=== PATIENT | female | born 1965 | race Caucasian/White ===

== ENCOUNTER 2019-05-19 04:36 | Inpatient (IN) ==
[2019-05-19] MEDS ORDERED: LACTULOSE 20 GM/30 ML UDCUP PO PRN (07:14)
[2019-05-19] MEDS ORDERED: ONDANSETRON 4 MG/2 ML VIAL IV PRN (07:14)
[2019-05-19 07:42] LABS: Basophils % 0.4 % (0.0-0.8); Eosinophils # 0.2 10*3/uL (0.0-0.87); Eosinophils % 2.3 % (0.00-10.9); Hematocrit 31.8 VOL% (35.7-47.0); Hemoglobin 10.1 GM/DL (12.0-16.0); Immature Granulocytes % 0.3 %; Immature Granulocytes Absolute 0.02 #; Lymphocytes % 25.7 % (21.3-54.2); Mean Corpuscular HGB Conc 31.8 GM/DL (32-36); Mean Corpuscular Volume 78.7 FL (87-102); Mean Platelet Volume 9.6 FL (9.6-12.0); Monocytes % 7.2 % (1.7-12.7); Neutrophils % 64.1 % (38.7-73.9); Platelet Count 257 T/CUMM (130-400); Red Blood Count 4.04 MC/CUMM (3.8-5.5); Red Cell Distribution Width 15.9 % (9.3-17.3); White Blood Count 7.8 T/CUMM (4-12)
[2019-05-19 07:53] LABS: PT Patient Result 10.7 SECS (9.6-12.2); Partial Thromboplastin Time 33.8 SECS (20.8-36.0)
[2019-05-19 08:16] LABS: Troponin I 4.03 NG/ML (0.00-0.045)
[2019-05-19 08:29] LABS: Bilirubin,Total 0.4 MG/DL (0.2-1.0); Calcium 8.8 MG/DL (8.5-10.1); Osmolality,Calculated 282.1 MOS/KG (273-304); Risk Ratio 2.74; Thyroid Stimulating Hormone 4.2 uIU/ml (0.358-3.74); Total Protein 7.1 G/DL (6.4-8.3); VLDL CHOLESTEROL 14.2 MG/DL
[2019-05-19] MEDS: ENOXAPARIN 40 MG/0.4 ML SYRINGE SUBCUT SCH (08:33)
[2019-05-19] MEDS ORDERED: MAGNESIUM SULF RIDER 2 GM in PREMIX 1 EACH IV PRN (08:58)
[2019-05-19] MEDS ORDERED: POTASSIUM CHLORIDE RIDER 10 MEQ in PREMIX 1 EACH IV PRN (08:58)
[2019-05-19] MEDS ORDERED: diphenhydrAMINE CAP 25 MG CAPSULE PO ONE (08:58)
[2019-05-19] MEDS ORDERED: ASPIRIN 325 MG TABLET PO ONE (08:58)
[2019-05-19] MEDS ORDERED: DIAZEPAM 5 MG TABLET PO ONE (08:58)
[2019-05-19 09:59] LABS: Apearance,Urine Slightly Hazy (Clear); Bacteria,Urine Occasional /HPF (Few); Bilirubin,Urine Negative (Negative); Blood, Urine Negative (Negative); Glucose,Urine (UA) Negative (Negative); Ketones,Urine Negative (Negative); Mucus,Urine Occasional /LPF (Occasional); Nitrite,Urine Negative (Negative); Protein,Urine Negative; RBC,Urine 4 /HPF (0-4); Squamous Epithelial Cell,Urine Occasional /HPF (0-10); Urine Color Yellow (Yellow); Urine Urobilinogen < 2.0 EU/DL (0.2-1.0); WBC,Urine 85 /HPF (0-6)
[2019-05-19 10:07] LABS: Barbiturates Screen,Urine Negative (Negative); Benzodiazepines Screen,Urine Negative (Negative); Cannabinoid Screen,Urine Positive (Negative); Opiate Screen,Urine Positive (Negative); Phencyclidine Screen,Urine Negative (Negative)
[2019-05-19] MEDS: PANTOPRAZOLE 40 MG TABLET PO SCH (10:13)
[2019-05-19] MEDS ORDERED: LIDOCAINE 1% 20 ML VIAL ONE (14:48)
[2019-05-19] MEDS ORDERED: HEPARIN/NACL 0.9% 2 UNITS/ML 500 ML IV ONE (14:48)
[2019-05-19] MEDS ORDERED: MIDAZOLAM 2 MG/2 ML VIAL ONE (15:06)
[2019-05-19] MEDS ORDERED: HYDROmorphone 2 MG/1 ML VIAL ONE (15:06)
[2019-05-19] MEDS ORDERED: ADENOSINE 90 MG/30 ML VIAL IV ONE (15:52)
[2019-05-19] MEDS ORDERED: ENOXAPARIN 30 MG/0.3 ML SYRINGE ONE (15:54)
[2019-05-19] MEDS: ACETAMINOPHEN 325 MG TABLET PO PRN (18:00)
[2019-05-19] MEDS ORDERED: MORPHINE 4 MG/1 ML VIAL IV PRN (20:36)
[2019-05-19] MEDS: HydrOXYzine PAMOATE 25 MG CAPSULE PO SCH (21:06)
[2019-05-19] MEDS: NITROGLYCERIN SL 0.4 MG TABLET SL PRN ×3 (23:00→23:12)
[2019-05-19] MEDS ORDERED: LORazepam 2 MG/1 ML VIAL IV ONE (23:27)
[2019-05-19] MEDS ORDERED: NITROGLYCERIN 2% OINT 1 INCH/GM PACK TOP ONE (23:34)
[2019-05-20] MEDS ORDERED: ATORVASTATIN 20 MG TABLET PO SCH (00:58)
[2019-05-20] MEDS: MORPHINE 4 MG/1 ML VIAL IV PRN ×4 (02:21→15:30)
[2019-05-20] MEDS: ASPIRIN EC 81 MG TABLET PO SCH ×2 (03:50→10:49)
[2019-05-20] MEDS: METOPROLOL TARTRATE 25 MG TABLET PO SCH ×3 (03:50→20:49)
[2019-05-20 04:30] LABS: Basophils % 0.2 % (0.0-0.8); Eosinophils # 0.2 10*3/uL (0.0-0.87); Eosinophils % 1.7 % (0.00-10.9); Hematocrit 32.5 VOL% (35.7-47.0); Immature Granulocytes % 0.2 %; Immature Granulocytes Absolute 0.02 #; Lymphocytes # 1.8 10*3/uL (1.4-4.0); Lymphocytes % 18.7 % (21.3-54.2); Mean Corpuscular HGB Conc 30.8 GM/DL (32-36); Mean Corpuscular Volume 79.5 FL (87-102); Mean Platelet Volume 10.1 FL (9.6-12.0); Monocytes % 7.3 % (1.7-12.7); Neutrophils % 71.9 % (38.7-73.9); Platelet Count 280 T/CUMM (130-400); Red Blood Count 4.09 MC/CUMM (3.8-5.5); White Blood Count 9.4 T/CUMM (4-12)
[2019-05-20 04:42] LABS: Calcium 8.3 MG/DL (8.5-10.1); Osmolality,Calculated 287.8 MOS/KG (273-304)
[2019-05-20] MEDS ORDERED: hydrALAZINE 20 MG/1 ML VIAL IV STA (04:51)
[2019-05-20] MEDS ORDERED: NITROGLYCERIN 2% OINT 1 INCH/GM PACK TOP SCH (06:00)
[2019-05-20] MEDS ORDERED: hydrALAZINE 20 MG/1 ML VIAL IV PRN (08:28)
[2019-05-20] MEDS: FLUoxetine 20 MG CAPSULE PO SCH (09:23)
[2019-05-20] MEDS: HydrOXYzine PAMOATE 25 MG CAPSULE PO SCH ×3 (09:24→20:49)
[2019-05-20] MEDS: LEVOFLOXACIN INJ 750 MG in PREMIX 1 EACH IV SCH (09:24)
[2019-05-20] MEDS: PANTOPRAZOLE 40 MG TABLET PO SCH (09:24)
[2019-05-20] MEDS: ENOXAPARIN 40 MG/0.4 ML SYRINGE SUBCUT SCH (09:59)
[2019-05-20] MEDS: NITROGLYCERIN DRIP 50 MG/250 ML BOTTLE IV PRN (10:49)
[2019-05-20] MEDS: HEPARIN DRIP 25,000 UNITS/500 ML PREMIX IV SCH (11:21)
[2019-05-20] MEDS ORDERED: HEPARIN 5,000 UNIT/1 ML VIAL IV ONE (13:30)
[2019-05-20] MEDS: LORazepam 2 MG/1 ML VIAL IV PRN ×2 (14:04→20:49)
[2019-05-20] MEDS ORDERED: cloNIDine 0.1 MG/24 HR PATCH TRANSDERM SCH (16:30)
[2019-05-20] MEDS: fentaNYL 25 MCG/HR PATCH TRANSDERM SCH (16:53)
[2019-05-20] MEDS: ATORVASTATIN 40 MG TABLET PO SCH (20:49)
[2019-05-21] MEDS: LORazepam 2 MG/1 ML VIAL IV PRN ×3 (00:22→20:23)
[2019-05-21] MEDS: MORPHINE 4 MG/1 ML VIAL IV PRN ×6 (01:54→18:37)
[2019-05-21 05:31] LABS: Basophils % 0.3 % (0.0-0.8); Eosinophils # 0.3 10*3/uL (0.0-0.87); Eosinophils % 3.9 % (0.00-10.9); Hemoglobin 9.8 GM/DL (12.0-16.0); Immature Granulocytes % 0.1 %; Immature Granulocytes Absolute 0.01 #; Lymphocytes % 27.8 % (21.3-54.2); Mean Corpuscular HGB Conc 31.6 GM/DL (32-36); Mean Corpuscular Volume 78.9 FL (87-102); Mean Platelet Volume 9.6 FL (9.6-12.0); Monocytes % 9.2 % (1.7-12.7); Neutrophils % 58.7 % (38.7-73.9); Platelet Count 241 T/CUMM (130-400); Red Blood Count 3.93 MC/CUMM (3.8-5.5); Red Cell Distribution Width 15.9 % (9.3-17.3); White Blood Count 7.3 T/CUMM (4-12)
[2019-05-21 06:16] LABS: Calcium 8.6 MG/DL (8.5-10.1); Osmolality,Calculated 279.4 MOS/KG (273-304)
[2019-05-21] MEDS: ASPIRIN EC 81 MG TABLET PO SCH (08:45)
[2019-05-21] MEDS: LEVOFLOXACIN INJ 750 MG in PREMIX 1 EACH IV SCH (08:45)
[2019-05-21] MEDS: PANTOPRAZOLE 40 MG TABLET PO SCH (08:46)
[2019-05-21] MEDS: METOPROLOL TARTRATE 25 MG TABLET PO SCH ×2 (08:46→20:23)
[2019-05-21] MEDS: FLUoxetine 20 MG CAPSULE PO SCH (08:47)
[2019-05-21] MEDS: HydrOXYzine PAMOATE 25 MG CAPSULE PO SCH ×3 (08:47→20:22)
[2019-05-21] MEDS ORDERED: HEPARIN 5,000 UNIT/1 ML VIAL IV ONE (11:36)
[2019-05-21] MEDS: HEPARIN DRIP 25,000 UNITS/500 ML PREMIX IV SCH (12:01)
[2019-05-21] MEDS: NITROGLYCERIN DRIP 50 MG/250 ML BOTTLE IV PRN (14:55)
[2019-05-21] MEDS: ATORVASTATIN 40 MG TABLET PO SCH (20:23)
[2019-05-22] MEDS: LORazepam 2 MG/1 ML VIAL IV PRN (00:34)
[2019-05-22 01:20] LABS: Basophils % 0.3 % (0.0-0.8); Eosinophils # 0.4 10*3/uL (0.0-0.87); Eosinophils % 6.4 % (0.00-10.9); Hematocrit 31.7 VOL% (35.7-47.0); Hemoglobin 9.8 GM/DL (12.0-16.0); Immature Granulocytes % 0.3 %; Immature Granulocytes Absolute 0.02 #; Lymphocytes # 1.9 10*3/uL (1.4-4.0); Lymphocytes % 31.6 % (21.3-54.2); Mean Corpuscular HGB Conc 30.9 GM/DL (32-36); Mean Corpuscular Volume 79.6 FL (87-102); Mean Platelet Volume 10.2 FL (9.6-12.0); Monocytes % 12.7 % (1.7-12.7); Neutrophils % 48.7 % (38.7-73.9); Platelet Count 232 T/CUMM (130-400); Red Blood Count 3.98 MC/CUMM (3.8-5.5); White Blood Count 6.1 T/CUMM (4-12)
[2019-05-22 01:48] LABS: Calcium 8.8 MG/DL (8.5-10.1); Osmolality,Calculated 278.5 MOS/KG (273-304)
[2019-05-22] MEDS: HEPARIN DRIP 25,000 UNITS/500 ML PREMIX IV SCH ×2 (09:01→11:22)
[2019-05-22] MEDS: HydrOXYzine PAMOATE 25 MG CAPSULE PO SCH ×3 (09:52→20:00)
[2019-05-22] MEDS: cefTRIAXone 1,000 MG in SYRINGE 1 EACH IV SCH (09:52)
[2019-05-22] MEDS: ASPIRIN EC 81 MG TABLET PO SCH (09:53)
[2019-05-22] MEDS: FLUoxetine 20 MG CAPSULE PO SCH (09:53)
[2019-05-22] MEDS: METOPROLOL TARTRATE 25 MG TABLET PO SCH ×2 (09:53→20:00)
[2019-05-22] MEDS: PANTOPRAZOLE 40 MG TABLET PO SCH (09:53)
[2019-05-22] MEDS: NITROGLYCERIN 2% OINT 1 INCH/GM PACK TOP SCH ×3 (09:53→17:25)
[2019-05-22] MEDS: ACETAMINOPHEN 325 MG TABLET PO PRN (13:04)
[2019-05-22] MEDS: MORPHINE 4 MG/1 ML VIAL IV PRN ×3 (15:35→22:39)
[2019-05-22] MEDS: ATORVASTATIN 40 MG TABLET PO SCH (20:00)
[2019-05-23] MEDS: MORPHINE 4 MG/1 ML VIAL IV PRN ×4 (04:03→20:20)
[2019-05-23] MEDS: NITROGLYCERIN 2% OINT 1 INCH/GM PACK TOP SCH ×4 (04:04→18:12)
[2019-05-23] MEDS: HEPARIN DRIP 25,000 UNITS/500 ML PREMIX IV SCH ×3 (04:37→22:14)
[2019-05-23 05:32] LABS: Basophils % 0.4 % (0.0-0.8); Eosinophils # 0.4 10*3/uL (0.0-0.87); Eosinophils % 5.3 % (0.00-10.9); Hematocrit 37.6 VOL% (35.7-47.0); Hemoglobin 11.6 GM/DL (12.0-16.0); Immature Granulocytes % 0.5 %; Immature Granulocytes Absolute 0.04 #; Lymphocytes # 1.7 10*3/uL (1.4-4.0); Lymphocytes % 22.8 % (21.3-54.2); Mean Corpuscular HGB Conc 30.9 GM/DL (32-36); Mean Corpuscular Volume 80.7 FL (87-102); Mean Platelet Volume 9.8 FL (9.6-12.0); Monocytes % 9.6 % (1.7-12.7); Neutrophils % 61.4 % (38.7-73.9); Platelet Count 282 T/CUMM (130-400); Red Blood Count 4.66 MC/CUMM (3.8-5.5); Red Cell Distribution Width 16.4 % (9.3-17.3); White Blood Count 7.3 T/CUMM (4-12)
[2019-05-23 05:48] LABS: Calcium 9.2 MG/DL (8.5-10.1); Osmolality,Calculated 276.7 MOS/KG (273-304)
[2019-05-23] MEDS: HydrOXYzine PAMOATE 25 MG CAPSULE PO SCH ×3 (08:29→20:44)
[2019-05-23] MEDS: ASPIRIN EC 81 MG TABLET PO SCH (08:30)
[2019-05-23] MEDS: fentaNYL 25 MCG/HR PATCH TRANSDERM SCH (08:30)
[2019-05-23] MEDS: METOPROLOL TARTRATE 25 MG TABLET PO SCH ×2 (08:30→20:25)
[2019-05-23] MEDS: FLUoxetine 20 MG CAPSULE PO SCH (08:30)
[2019-05-23] MEDS: PANTOPRAZOLE 40 MG TABLET PO SCH (08:30)
[2019-05-23] MEDS: cefTRIAXone 1,000 MG in SYRINGE 1 EACH IV SCH (08:31)
[2019-05-23] MEDS ORDERED: ASPIRIN CHEW 81 MG TABLET PO ONE (12:58)
[2019-05-23] MEDS: amLODIPine 5 MG TABLET PO SCH (14:06)
[2019-05-23] MEDS: ACETAMINOPHEN 325 MG TABLET PO SCH ×2 (14:07→20:23)
[2019-05-23] MEDS: GABAPENTIN 100 MG CAPSULE PO SCH ×3 (14:07→20:23)
[2019-05-23] MEDS: LORazepam 2 MG/1 ML VIAL IV PRN ×2 (14:07→20:45)
[2019-05-23] MEDS: ATORVASTATIN 40 MG TABLET PO SCH (20:25)
[2019-05-24] MEDS: NITROGLYCERIN 2% OINT 1 INCH/GM PACK TOP SCH ×5 (01:03→23:37)
[2019-05-24 02:13] LABS: Calcium 8.8 MG/DL (8.5-10.1); Osmolality,Calculated 274.8 MOS/KG (273-304)
[2019-05-24 02:17] LABS: Basophils % 0.5 % (0.0-0.8); Eosinophils # 0.4 10*3/uL (0.0-0.87); Eosinophils % 6.1 % (0.00-10.9); Hematocrit 34.3 VOL% (35.7-47.0); Hemoglobin 10.7 GM/DL (12.0-16.0); Immature Granulocytes % 1.1 %; Immature Granulocytes Absolute 0.07 #; Lymphocytes # 2.3 10*3/uL (1.4-4.0); Lymphocytes % 35.7 % (21.3-54.2); Mean Corpuscular HGB Conc 31.2 GM/DL (32-36); Mean Corpuscular Volume 79.8 FL (87-102); Mean Platelet Volume 10.3 FL (9.6-12.0); Monocytes % 11.8 % (1.7-12.7); Neutrophils % 44.8 % (38.7-73.9); Platelet Count 272 T/CUMM (130-400); Red Cell Distribution Width 16.2 % (9.3-17.3); White Blood Count 6.4 T/CUMM (4-12)
[2019-05-24] MEDS: LORazepam 2 MG/1 ML VIAL IV PRN ×4 (03:50→20:44)
[2019-05-24] MEDS: MORPHINE 4 MG/1 ML VIAL IV PRN ×4 (03:54→20:45)
[2019-05-24] MEDS: HEPARIN DRIP 25,000 UNITS/500 ML PREMIX IV SCH ×2 (09:11→16:26)
[2019-05-24] MEDS: HydrOXYzine PAMOATE 25 MG CAPSULE PO SCH ×3 (09:20→20:41)
[2019-05-24] MEDS: amLODIPine 5 MG TABLET PO SCH (09:20)
[2019-05-24] MEDS: FLUoxetine 20 MG CAPSULE PO SCH ×2 (09:20→20:47)
[2019-05-24] MEDS: ASPIRIN CHEW 81 MG TABLET PO SCH (09:20)
[2019-05-24] MEDS: METOPROLOL TARTRATE 25 MG TABLET PO SCH ×2 (09:21→20:41)
[2019-05-24] MEDS: PANTOPRAZOLE 40 MG TABLET PO SCH (09:21)
[2019-05-24] MEDS: GABAPENTIN 100 MG CAPSULE PO SCH ×3 (09:21→21:00)
[2019-05-24] MEDS: cefTRIAXone 1,000 MG in SYRINGE 1 EACH IV SCH (09:21)
[2019-05-24] MEDS: ACETAMINOPHEN 325 MG TABLET PO SCH ×2 (09:21→20:42)
[2019-05-24] MEDS: SODIUM CHLORIDE 0.9% 1,000 ML IV SCH (14:41)
[2019-05-24] MEDS: CHLORHEXIDINE 4% SOLN 118 ML BOTTLE TOP SCH ×2 (14:41→21:00)
[2019-05-24 19:41] LABS: Barbiturates Screen,Urine Negative (Negative); Benzodiazepines Screen,Urine Negative (Negative); Cannabinoid Screen,Urine Positive (Negative); Opiate Screen,Urine Positive (Negative); Phencyclidine Screen,Urine Negative (Negative)
[2019-05-24] MEDS: ATORVASTATIN 40 MG TABLET PO SCH (20:41)
[2019-05-24] MEDS: CHLORHEXIDINE 0.12% ORAL RINSE 60 ML BOTTLE SWISH/SPIT SCH (20:48)
[2019-05-25 01:50] LABS: Basophils % 0.6 % (0.0-0.8); Eosinophils # 0.4 10*3/uL (0.0-0.87); Eosinophils % 5.8 % (0.00-10.9); Hematocrit 35.1 VOL% (35.7-47.0); Hemoglobin 10.9 GM/DL (12.0-16.0); Immature Granulocytes % 0.8 %; Immature Granulocytes Absolute 0.05 #; Lymphocytes # 2.2 10*3/uL (1.4-4.0); Lymphocytes % 33.3 % (21.3-54.2); Mean Corpuscular HGB Conc 31.1 GM/DL (32-36); Mean Platelet Volume 9.8 FL (9.6-12.0); Monocytes % 11.9 % (1.7-12.7); Neutrophils % 47.6 % (38.7-73.9); Platelet Count 274 T/CUMM (130-400); Red Blood Count 4.39 MC/CUMM (3.8-5.5); White Blood Count 6.5 T/CUMM (4-12)
[2019-05-25 02:11] LABS: Calcium 8.9 MG/DL (8.5-10.1); Osmolality,Calculated 277.7 MOS/KG (273-304)
[2019-05-25] MEDS ORDERED: PAPAVERINE 60 MG/2 ML VIAL ONE (04:24)
[2019-05-25] MEDS ORDERED: TISSUE ADHESIVE 1 EACH APPLICATOR TOP ONE (04:24)
[2019-05-25] MEDS ORDERED: VANCOMYCIN 1,000 MG VIAL ONE (04:24)
[2019-05-25] MEDS: NITROGLYCERIN 2% OINT 1 INCH/GM PACK TOP SCH ×2 (05:10→12:00)
[2019-05-25] MEDS ORDERED: MIDAZOLAM 10 MG/2 ML VIAL ONE ×2 (05:14→11:45)
[2019-05-25] MEDS ORDERED: SUFentanil 250 MCG/5 ML AMP ONE (05:14)
[2019-05-25] MEDS ORDERED: DIAZEPAM 5 MG TABLET PO ONE (06:00)
[2019-05-25] MEDS ORDERED: FAMOTIDINE 20 MG TABLET PO ONE (06:00)
[2019-05-25] MEDS ORDERED: CEFUROXIME INJ 1,500 MG in SYRINGE 1 EACH IV ONE (06:30)
[2019-05-25 07:51] LABS: ABG Base Excess 0.2 MMOL/L (-2.5-2.5); ABG HCO3 24.6 MMOL/L (20-26); ABG PCO2 41.9 MM HG (35-48); ABG PH 7.388 (7.35-7.45); ABG TCO2 23.1 MMOL/L (23-27); Glucose Heart Surgery 98 MG/DL (74-106); Hematocrit Heart Surgery 29.8 PERCENT (37-47); Hemoglobin Heart Surgery 9.6 G/DL (12.0-16.0); Ionized Calcium Arterial 1.13 MMOL/L (1.21-1.46); PCO2 Patient Temp Arterial 41.9 MMHG; PH Patient Temp Arterial 7.388; Patient Temperature 37 CELCIUS; Potassium Heart/CVR 4.2 MMOL/L (3.5-5.1); Sodium Heart/CVR 137 MMOL/L (135-145)
[2019-05-25] MEDS: ASPIRIN CHEW 81 MG TABLET PO SCH (09:01)
[2019-05-25] MEDS: GABAPENTIN 100 MG CAPSULE PO SCH ×2 (09:02→20:24)
[2019-05-25] MEDS: cefTRIAXone 1,000 MG in SYRINGE 1 EACH IV SCH (09:02)
[2019-05-25] MEDS: CHLORHEXIDINE 0.12% ORAL RINSE 60 ML BOTTLE SWISH/SPIT SCH ×2 (09:02→20:24)
[2019-05-25] MEDS: METOPROLOL TARTRATE 25 MG TABLET PO SCH (09:02)
[2019-05-25] MEDS: FLUoxetine 20 MG CAPSULE PO SCH ×2 (09:02→20:24)
[2019-05-25] MEDS: CHLORHEXIDINE 4% SOLN 118 ML BOTTLE TOP SCH (09:02)
[2019-05-25] MEDS: PANTOPRAZOLE 40 MG TABLET PO SCH (09:02)
[2019-05-25] MEDS: ACETAMINOPHEN 325 MG TABLET PO SCH (09:02)
[2019-05-25] MEDS: amLODIPine 5 MG TABLET PO SCH (09:02)
[2019-05-25] MEDS: HydrOXYzine PAMOATE 25 MG CAPSULE PO SCH (09:03)
[2019-05-25 09:19] LABS: Hematocrit Heart Surgery 19.4 PERCENT (37-47); Hemoglobin Heart Surgery 6.2 G/DL (12.0-16.0); PH Patient Temp Venous 7.383; PO2 Patient Temp Venous 35.4 MM HG; Potassium Heart/CVR 5.1 MMOL/L (3.5-5.1); VBG Base Excess 0.2 MEQ/L (0-4); VBG HCO3 24.4 MEQ/L (24-28); VBG Oxygen Saturation 75.4 %; VBG PCO2 46.3 MMHG (41-51); VBG PH 7.354; VBG PO2 40.6 MMHG (17-40)
[2019-05-25 09:47] LABS: Hematocrit Heart Surgery 19.7 PERCENT (37-47); PCO2 Patient Temp Venous 39.1 MM HG; PH Patient Temp Venous 7.395; PO2 Patient Temp Venous 40.7 MM HG; Potassium Heart/CVR 4.9 MMOL/L (3.5-5.1); VBG Base Excess -0.5 MEQ/L (0-4); VBG HCO3 23.9 MEQ/L (24-28); VBG Oxygen Saturation 85.2 %; VBG PCO2 45.3 MMHG (41-51); VBG PH 7.352; VBG PO2 49.9 MMHG (17-40)
[2019-05-25 09:50] LABS: Hemoglobin Heart Surgery 6.3 G/DL (12.0-16.0)
[2019-05-25] MEDS ORDERED: CALCIUM CHLORIDE 1,000 MG/10 ML SYRINGE IV ONE (09:56)
[2019-05-25] MEDS ORDERED: EPINEPHrine 1 MG/10 ML SYRINGE ONE (09:56)
[2019-05-25] MEDS ORDERED: SODIUM BICARBONATE 50 MEQ/50 ML VIAL IV ONE ×2 (09:56→10:30)
[2019-05-25] MEDS ORDERED: ATROPINE 1 MG/10 ML SYRINGE ONE (09:56)
[2019-05-25] MEDS: HEPARIN DRIP 25,000 UNITS/500 ML PREMIX IV SCH (10:00)
[2019-05-25] MEDS ORDERED: THROMBIN TOPICAL (RECOMBINANT) 5,000 UNIT VIAL TOP ONE (10:24)
[2019-05-25] MEDS ORDERED: MANNITOL 100 GM/500 ML BAG IV ONE (10:30)
[2019-05-25] MEDS ORDERED: MAGNESIUM SULFATE 5 GM/10 ML VIAL IV ONE (10:30)
[2019-05-25] MEDS ORDERED: DEXTROSE 5% KCL 20 MEQ 20 MEQ/1,000 ML BAG IV ONE (10:30)
[2019-05-25] MEDS ORDERED: PROTAMINE SULFATE 250 MG/25 ML VIAL IV ONE (10:30)
[2019-05-25] MEDS ORDERED: ALBUMIN 25% 25 GM/100 ML VIAL IV ONE (10:30)
[2019-05-25] MEDS ORDERED: LIDOCAINE 100 MG/5 ML SYRINGE ONE ×2 (10:30→11:44)
[2019-05-25] MEDS ORDERED: HEPARIN 10,000 UNIT/10 ML VIAL ONE ×2 (10:30→10:43)
[2019-05-25] MEDS ORDERED: FUROSEMIDE 20 MG/2 ML VIAL ONE (10:31)
[2019-05-25] MEDS ORDERED: methylPREDNISolone SOD SUC 1,000 MG/8 ML VIAL ONE (10:31)
[2019-05-25 10:45] LABS: ABG Base Excess -4.4 MMOL/L (-2.5-2.5); ABG HCO3 20.8 MMOL/L (20-26); ABG Oxygen Saturation 99.6 % (95-100); ABG PCO2 45.5 MM HG (35-48); ABG PH 7.294 (7.35-7.45); ABG TCO2 20.5 MMOL/L (23-27); Glucose Heart Surgery 181 MG/DL (74-106); Hematocrit Heart Surgery 28.4 PERCENT (37-47); Hemoglobin Heart Surgery 9.2 G/DL (12.0-16.0); Ionized Calcium Arterial 1.22 MMOL/L (1.21-1.46); PCO2 Patient Temp Arterial 45.5 MMHG; PH Patient Temp Arterial 7.294; Patient Temperature 37 CELCIUS; Potassium Heart/CVR 4.8 MMOL/L (3.5-5.1); Sodium Heart/CVR 128 MMOL/L (135-145)
[2019-05-25] MEDS ORDERED: PHENYLEPHRINE DRIP 40 MG/250 ML PREMIX IV ONE (11:12)
[2019-05-25] MEDS: SODIUM CHLORIDE 0.45% 1,000 ML IV SCH (11:30)
[2019-05-25] MEDS ORDERED: NITROGLYCERIN DRIP 50 MG/250 ML BOTTLE IV ONE ×2 (11:34→11:45)
[2019-05-25] MEDS ORDERED: SEVOFLURANE 1 UNIT/15 MINUTE INH ONE (11:42)
[2019-05-25] MEDS ORDERED: HEPARIN/NACL 0.9% 2 UNITS/ML 500 ML IV ONE (11:44)
[2019-05-25] MEDS ORDERED: PHENYLEPHRINE DRIP 20 MG/250 ML PREMIX IV ONE (11:44)
[2019-05-25] MEDS ORDERED: CALCIUM CHLORIDE 1,000 MG/10 ML VIAL IV ONE (11:44)
[2019-05-25] MEDS ORDERED: SODIUM CHLORIDE 0.9% 1,000 ML IV ONE (11:45)
[2019-05-25] MEDS ORDERED: LACTATED RINGERS 1,000 ML IV ONE ×2 (11:45→17:17)
[2019-05-25] MEDS ORDERED: AMINOCAPROIC ACID 5,000 MG/20 ML VIAL ONE (11:45)
[2019-05-25] MEDS ORDERED: PHENYLEPHRINE 1 MG/10 ML SYRINGE IV ONE (11:45)
[2019-05-25] MEDS ORDERED: ETOMIDATE 40 MG/20 ML VIAL IV ONE (11:45)
[2019-05-25] MEDS ORDERED: VECURONIUM 10 MG VIAL IV ONE (11:45)
[2019-05-25] MEDS ORDERED: DEXTROSE 50% 25 GM/50 ML VIAL IV PRN ×2 (12:00)
[2019-05-25] MEDS ORDERED: POTASSIUM CHLORIDE RIDER 10 MEQ in PREMIX 1 EACH IV PRN (12:00)
[2019-05-25] MEDS ORDERED: MAGNESIUM SULF RIDER 2 GM in PREMIX 1 EACH IV PRN (12:00)
[2019-05-25] MEDS ORDERED: CHLORHEXIDINE 4% SOLN 118 ML BOTTLE TOP PRN (12:00)
[2019-05-25] MEDS ORDERED: MIDAZOLAM 2 MG/2 ML VIAL IV PRN (12:00)
[2019-05-25] MEDS ORDERED: CALCIUM CHLORIDE 1,000 MG/10 ML SYRINGE IV PRN (12:00)
[2019-05-25] MEDS: SODIUM CHLORIDE 0.9% 1,000 ML IV SCH (12:00)
[2019-05-25] MEDS ORDERED: SODIUM CHLORIDE 0.9% 250 ML IV PRN (12:00)
[2019-05-25] MEDS ORDERED: SODIUM CHLORIDE 0.45% 1,000 ML IV SCH (12:00)
[2019-05-25] MEDS ORDERED: ACETAMINOPHEN 650 MG SUPP RECTAL PRN (12:00)
[2019-05-25] MEDS ORDERED: MAGNESIUM SULF RIDER 4 GM in PREMIX 1 EACH IV PRN (12:00)
[2019-05-25] MEDS ORDERED: INSULIN REGULAR 100 UNIT/ML IV PRN (12:00)
[2019-05-25 12:06] LABS: Basophils % 0.3 % (0.0-0.8); Eosinophils # 0.2 10*3/uL (0.0-0.87); Hematocrit 32.4 VOL% (35.7-47.0); Hemoglobin 10.5 GM/DL (12.0-16.0); Immature Granulocytes % 0.9 %; Immature Granulocytes Absolute 0.08 #; Lymphocytes # 0.5 10*3/uL (1.4-4.0); Lymphocytes % 6.1 % (21.3-54.2); Mean Corpuscular HGB Conc 32.4 GM/DL (32-36); Mean Platelet Volume 9.9 FL (9.6-12.0); Monocytes % 5.8 % (1.7-12.7); Neutrophils % 84.9 % (38.7-73.9); Platelet Count 205 T/CUMM (130-400); Red Cell Distribution Width 15.5 % (9.3-17.3); White Blood Count 8.8 T/CUMM (4-12)
[2019-05-25 12:07] LABS: ABG Base Excess -1.6 MMOL/L (-2.5-2.5); ABG HCO3 23.1 MMOL/L (20-26); ABG Oxygen Saturation 98.7 % (95-100); ABG PCO2 49.5 MM HG (35-48); ABG PH 7.313 (7.35-7.45); ABG TCO2 22.8 MMOL/L (23-27); Glucose Heart Surgery 113 MG/DL (74-106); Hematocrit Heart Surgery 32.7 PERCENT (37-47); Hemoglobin Heart Surgery 10.6 G/DL (12.0-16.0)
[2019-05-25 12:12] LABS: INR 1.1; PT Patient Result 11.4 SECS (9.6-12.2); Partial Thromboplastin Time 28.1 SECS (20.8-36.0)
[2019-05-25] MEDS ORDERED: POTASSIUM CHLORIDE RIDER 100 ML IV ONE (12:14)
[2019-05-25] MEDS: POTASSIUM CHLORIDE RIDER 20 MEQ in PREMIX 1 EACH IV PRN ×3 (12:15→17:45)
[2019-05-25 12:23] LABS: Calcium 8.4 MG/DL (8.5-10.1); Osmolality,Calculated 272.1 MOS/KG (273-304)
[2019-05-25] MEDS ORDERED: PHENYLEPHRINE DRIP 40 MG/250 ML PREMIX IV PRN (12:27)
[2019-05-25] MEDS ORDERED: NITROGLYCERIN DRIP 50 MG/250 ML BOTTLE IV PRN (12:27)
[2019-05-25] MEDS: ALBUMIN 5% 12.5 GM in PREMIX 1 EACH IV PRN ×4 (12:35→14:55)
[2019-05-25] MEDS: MORPHINE 10 MG/1 ML VIAL IV PRN ×3 (12:50→18:15)
[2019-05-25] MEDS ORDERED: ASPIRIN 325 MG TABLET PO ONE (13:00)
[2019-05-25] MEDS: NITROPRUSSIDE 100 MG in DEXTROSE 5% 250 ML IV PRN ×2 (13:50→20:54)
[2019-05-25] MEDS ORDERED: INSULIN REGULAR DRIP 100 ML IV PRN (14:07)
[2019-05-25 14:49] LABS: ABG Base Excess -0.2 MMOL/L (-2.5-2.5); ABG HCO3 24.4 MMOL/L (20-26); ABG Oxygen Saturation 97.4 % (95-100); ABG PCO2 39.9 MM HG (35-48); ABG PH 7.405 (7.35-7.45); ABG PO2 98.9 MM HG (80-95); ABG TCO2 25.7 MMOL/L (23-27); Glucose Heart Surgery 200 MG/DL (74-106); Hemoglobin Heart Surgery 10.6 G/DL (12.0-16.0); Potassium Heart/CVR 4.1 MMOL/L (3.5-5.1)
[2019-05-25 17:33] LABS: Hematocrit Heart Surgery 30.9 PERCENT (37-47); PCO2 Patient Temp Venous 48.8 MM HG; PH Patient Temp Venous 7.341; Potassium Heart/CVR 4.1 MMOL/L (3.5-5.1); VBG Base Excess 0.2 MEQ/L (0-4); VBG HCO3 23.9 MEQ/L (24-28); VBG Oxygen Saturation 56.6 %; VBG PCO2 48.8 MMHG (41-51); VBG PH 7.341
[2019-05-25 17:39] LABS: ABG Base Excess -0.9 MMOL/L (-2.5-2.5); ABG HCO3 23.6 MMOL/L (20-26); ABG Oxygen Saturation 94.9 % (95-100); ABG PCO2 42.4 MM HG (35-48); ABG PH 7.368 (7.35-7.45); ABG PO2 72.9 MM HG (80-95); ABG TCO2 22.3 MMOL/L (23-27); Glucose Heart Surgery 191 MG/DL (74-106); Hematocrit Heart Surgery 30.4 PERCENT (37-47); Hemoglobin Heart Surgery 9.8 G/DL (12.0-16.0); Potassium Heart/CVR 4.1 MMOL/L (3.5-5.1)
[2019-05-25 18:42] LABS: ABG Base Excess -0.7 MMOL/L (-2.5-2.5); ABG HCO3 23.8 MMOL/L (20-26); ABG Oxygen Saturation 94.9 % (95-100); ABG PCO2 42.7 MM HG (35-48); ABG PH 7.369 (7.35-7.45); ABG PO2 72.6 MM HG (80-95); ABG TCO2 22.5 MMOL/L (23-27); Glucose Heart Surgery 189 MG/DL (74-106); Hematocrit Heart Surgery 30.2 PERCENT (37-47); Hemoglobin Heart Surgery 9.7 G/DL (12.0-16.0); Potassium Heart/CVR 4.6 MMOL/L (3.5-5.1)
[2019-05-25] MEDS: HydrOXYzine PAMOATE 50 MG CAPSULE PO SCH (20:24)
[2019-05-25] MEDS: MORPHINE 4 MG/1 ML VIAL IV PRN (20:33)
[2019-05-25] MEDS ORDERED: KETOROLAC 30 MG/1 ML VIAL IV ONE (20:48)
[2019-05-25] MEDS ORDERED: ATORVASTATIN 40 MG TABLET PO SCH (21:00)
[2019-05-25] MEDS: chlordiazePOXIDE 10 MG CAPSULE PO SCH (21:13)
[2019-05-25] MEDS: fentaNYL 25 MCG/HR PATCH TRANSDERM SCH (21:13)
[2019-05-25] MEDS: CEFUROXIME INJ 1,500 MG in SYRINGE 1 EACH IV SCH (23:12)
[2019-05-26] MEDS: SODIUM CHLORIDE 0.45% 1,000 ML IV SCH ×2 (00:22→03:21)
[2019-05-26] MEDS: NITROPRUSSIDE 100 MG in DEXTROSE 5% 250 ML IV PRN ×2 (02:23→07:40)
[2019-05-26] MEDS: MORPHINE 4 MG/1 ML VIAL IV PRN ×8 (03:44→23:44)
[2019-05-26 03:45] LABS: Basophils % 0.2 % (0.0-0.8); Hematocrit 26.6 VOL% (35.7-47.0); Hemoglobin 8.7 GM/DL (12.0-16.0); Immature Granulocytes % 0.7 %; Immature Granulocytes Absolute 0.11 #; Lymphocytes # 0.9 10*3/uL (1.4-4.0); Lymphocytes % 5.4 % (21.3-54.2); Mean Corpuscular HGB Conc 32.7 GM/DL (32-36); Mean Corpuscular Volume 79.9 FL (87-102); Mean Platelet Volume 9.6 FL (9.6-12.0); Monocytes % 6.7 % (1.7-12.7); Platelet Count 183 T/CUMM (130-400); Red Blood Count 3.33 MC/CUMM (3.8-5.5); Red Cell Distribution Width 15.7 % (9.3-17.3); White Blood Count 15.7 T/CUMM (4-12)
[2019-05-26 04:13] LABS: Calcium 8.3 MG/DL (8.5-10.1)
[2019-05-26] MEDS: chlordiazePOXIDE 10 MG CAPSULE PO SCH ×3 (04:29→20:56)
[2019-05-26] MEDS ORDERED: FUROSEMIDE 40 MG/4 ML VIAL IV ONE (05:35)
[2019-05-26 07:27] LABS: ABG Base Excess -0.1 MMOL/L (-2.5-2.5); ABG HCO3 24.3 MMOL/L (20-26); ABG Oxygen Saturation 90.9 % (95-100); ABG PCO2 40.2 MM HG (35-48); ABG PH 7.397 (7.35-7.45); ABG PO2 60.1 MM HG (80-95); ABG TCO2 22.6 MMOL/L (23-27); Glucose Heart Surgery 159 MG/DL (74-106); Hematocrit Heart Surgery 30.5 PERCENT (37-47); Hemoglobin Heart Surgery 9.9 G/DL (12.0-16.0); Potassium Heart/CVR 4.2 MMOL/L (3.5-5.1)
[2019-05-26] MEDS ORDERED: NITROPRUSSIDE 50 MG/2 ML VIAL ONE (07:39)
[2019-05-26] MEDS: INSULIN REGULAR 100 UNIT/ML SUBCUT SCH ×4 (08:07→20:55)
[2019-05-26] MEDS: HydrOXYzine PAMOATE 50 MG CAPSULE PO SCH ×3 (08:45→21:00)
[2019-05-26] MEDS: FUROSEMIDE 40 MG TABLET PO SCH (08:46)
[2019-05-26] MEDS: ASPIRIN EC 325 MG TABLET PO SCH (08:46)
[2019-05-26] MEDS: PANTOPRAZOLE 40 MG VIAL IV SCH (08:47)
[2019-05-26] MEDS: GABAPENTIN 100 MG CAPSULE PO SCH ×3 (08:47→20:56)
[2019-05-26] MEDS: FLUoxetine 20 MG CAPSULE PO SCH ×2 (08:47→20:56)
[2019-05-26] MEDS: CHLORHEXIDINE 0.12% ORAL RINSE 60 ML BOTTLE SWISH/SPIT SCH ×2 (08:48→20:57)
[2019-05-26] MEDS ORDERED: cloNIDine 0.1 MG/24 HR PATCH TRANSDERM SCH ×2 (09:00→09:30)
[2019-05-26] MEDS ORDERED: KETOROLAC 15 MG/1 ML VIAL IV ONE (09:10)
[2019-05-26] MEDS: METOPROLOL TARTRATE 25 MG TABLET PO SCH ×2 (09:30→20:56)
[2019-05-26] MEDS: CEFUROXIME INJ 1,500 MG in SYRINGE 1 EACH IV SCH ×2 (12:05→23:58)
[2019-05-26] MEDS: METOPROLOL TARTRATE 5 MG/5 ML VIAL IV PRN ×2 (16:25→23:02)
[2019-05-26] MEDS: KETOROLAC 15 MG/1 ML VIAL IV SCH ×2 (17:10→23:58)
[2019-05-26 17:47] LABS: Barbiturates Screen,Urine Negative (Negative); Benzodiazepines Screen,Urine Positive (Negative); Cannabinoid Screen,Urine Negative (Negative); Opiate Screen,Urine Positive (Negative); Phencyclidine Screen,Urine Negative (Negative)
[2019-05-26] MEDS: ALBUTEROL/IPRATROPIUM 3 ML NEB RESP TX SCH (19:46)
[2019-05-26] MEDS: ATORVASTATIN 40 MG TABLET PO SCH (20:56)
[2019-05-27] MEDS: INSULIN REGULAR 100 UNIT/ML SUBCUT SCH ×6 (00:07→21:01)
[2019-05-27] MEDS: NITROPRUSSIDE 100 MG in DEXTROSE 5% 250 ML IV PRN ×2 (00:29→11:23)
[2019-05-27] MEDS: ALBUTEROL/IPRATROPIUM 3 ML NEB RESP TX SCH ×4 (01:43→19:05)
[2019-05-27] MEDS: chlordiazePOXIDE 10 MG CAPSULE PO SCH ×3 (04:50→21:03)
[2019-05-27] MEDS: MORPHINE 4 MG/1 ML VIAL IV PRN (04:55)
[2019-05-27 05:04] LABS: Basophils % 0.2 % (0.0-0.8); Hematocrit 28.4 VOL% (35.7-47.0); Hemoglobin 8.9 GM/DL (12.0-16.0); Immature Granulocytes % 1.3 %; Immature Granulocytes Absolute 0.21 #; Lymphocytes # 1.1 10*3/uL (1.4-4.0); Lymphocytes % 6.9 % (21.3-54.2); Mean Corpuscular HGB Conc 31.3 GM/DL (32-36); Mean Corpuscular Volume 82.3 FL (87-102); Mean Platelet Volume 10.6 FL (9.6-12.0); Monocytes % 8.4 % (1.7-12.7); Neutrophils % 83.2 % (38.7-73.9); Platelet Count 205 T/CUMM (130-400); Red Blood Count 3.45 MC/CUMM (3.8-5.5); Red Cell Distribution Width 16.3 % (9.3-17.3); White Blood Count 16.5 T/CUMM (4-12)
[2019-05-27 05:43] LABS: Calcium 8.3 MG/DL (8.5-10.1); Osmolality,Calculated 275.1 MOS/KG (273-304)
[2019-05-27] MEDS: KETOROLAC 15 MG/1 ML VIAL IV SCH ×2 (06:39→11:43)
[2019-05-27] MEDS: MORPHINE 10 MG/1 ML VIAL IV PRN ×5 (07:27→23:01)
[2019-05-27] MEDS ORDERED: FUROSEMIDE 40 MG/4 ML VIAL IV ONE (07:28)
[2019-05-27] MEDS: PIPERACILLIN/TAZOBACTAM 3,375 MG in SODIUM CHLORIDE 0.9% 100 ML IV SCH ×3 (07:49→23:02)
[2019-05-27] MEDS: methylPREDNISolone SOD SUC 40 MG/1 ML VIAL IV SCH ×3 (07:49→23:00)
[2019-05-27 08:32] LABS: ABG Base Excess 1.5 MMOL/L (-2.5-2.5); ABG HCO3 25.6 MMOL/L (20-26); ABG Oxygen Saturation 88.1 % (95-100); ABG PCO2 40.9 MM HG (35-48); ABG PH 7.414 (7.35-7.45); ABG PO2 55.1 MM HG (80-95); ABG TCO2 24.1 MMOL/L (23-27); Allen Test Positive; Pt O2 Delivery Device Venturi Mask
[2019-05-27] MEDS: FLUoxetine 20 MG CAPSULE PO SCH ×2 (08:58→21:04)
[2019-05-27] MEDS: PANTOPRAZOLE 40 MG VIAL IV SCH (08:59)
[2019-05-27] MEDS: FUROSEMIDE 40 MG TABLET PO SCH (08:59)
[2019-05-27] MEDS: ASPIRIN EC 325 MG TABLET PO SCH (08:59)
[2019-05-27] MEDS: METOPROLOL TARTRATE 25 MG TABLET PO SCH (08:59)
[2019-05-27] MEDS: GABAPENTIN 100 MG CAPSULE PO SCH ×3 (09:27→21:04)
[2019-05-27] MEDS: CHLORHEXIDINE 0.12% ORAL RINSE 60 ML BOTTLE SWISH/SPIT SCH ×2 (09:27→21:06)
[2019-05-27] MEDS ORDERED: PANTOPRAZOLE 40 MG TABLET PO SCH (09:30)
[2019-05-27] MEDS: HydrOXYzine PAMOATE 50 MG CAPSULE PO SCH ×3 (09:42→21:03)
[2019-05-27] MEDS ORDERED: METOPROLOL TARTRATE 25 MG TABLET PO ONE (10:27)
[2019-05-27] MEDS ORDERED: hydrALAZINE 20 MG/1 ML VIAL IV PRN (13:16)
[2019-05-27] MEDS: ONDANSETRON 4 MG/2 ML VIAL IV PRN ×2 (14:48→21:11)
[2019-05-27] MEDS: FUROSEMIDE 40 MG/4 ML VIAL IV SCH (15:36)
[2019-05-27] MEDS: METOPROLOL TARTRATE 50 MG TABLET PO SCH (21:03)
[2019-05-27] MEDS: ATORVASTATIN 40 MG TABLET PO SCH (21:04)
[2019-05-28] MEDS: INSULIN REGULAR 100 UNIT/ML SUBCUT SCH ×6 (00:44→20:30)
[2019-05-28] MEDS: ALBUTEROL/IPRATROPIUM 3 ML NEB RESP TX SCH ×4 (01:05→20:11)
[2019-05-28] MEDS: MORPHINE 10 MG/1 ML VIAL IV PRN ×5 (02:48→15:27)
[2019-05-28 04:39] LABS: ABG Base Excess 4.3 MMOL/L (-2.5-2.5); ABG HCO3 28.2 MMOL/L (20-26); ABG Oxygen Saturation 94.4 % (95-100); ABG PCO2 45.4 MM HG (35-48); ABG PO2 69.5 MM HG (80-95); ABG TCO2 26.7 MMOL/L (23-27); Allen Test Positive; Pt O2 Delivery Device Other
[2019-05-28 04:56] LABS: Basophils % 0.1 % (0.0-0.8); Hematocrit 28.4 VOL% (35.7-47.0); Hemoglobin 9.1 GM/DL (12.0-16.0); Immature Granulocytes % 1.9 %; Immature Granulocytes Absolute 0.29 #; Lymphocytes # 0.9 10*3/uL (1.4-4.0); Lymphocytes % 5.8 % (21.3-54.2); Mean Corpuscular Volume 81.4 FL (87-102); Mean Platelet Volume 10.4 FL (9.6-12.0); Monocytes % 7.4 % (1.7-12.7); NRBC # 0.02 10*3/uL; Neutrophils % 84.8 % (38.7-73.9); Platelet Count 213 T/CUMM (130-400); Red Blood Count 3.49 MC/CUMM (3.8-5.5); Red Cell Distribution Width 16.1 % (9.3-17.3); White Blood Count 15.3 T/CUMM (4-12)
[2019-05-28] MEDS: chlordiazePOXIDE 10 MG CAPSULE PO SCH ×3 (05:17→20:32)
[2019-05-28 05:19] LABS: Calcium 8.6 MG/DL (8.5-10.1); Osmolality,Calculated 280.8 MOS/KG (273-304)
[2019-05-28] MEDS: methylPREDNISolone SOD SUC 40 MG/1 ML VIAL IV SCH ×3 (08:14→22:42)
[2019-05-28] MEDS: PIPERACILLIN/TAZOBACTAM 3,375 MG in SODIUM CHLORIDE 0.9% 100 ML IV SCH ×3 (08:15→22:42)
[2019-05-28] MEDS: HydrOXYzine PAMOATE 50 MG CAPSULE PO SCH ×3 (08:39→20:31)
[2019-05-28] MEDS: ASPIRIN EC 325 MG TABLET PO SCH (08:39)
[2019-05-28] MEDS: CHLORHEXIDINE 0.12% ORAL RINSE 60 ML BOTTLE SWISH/SPIT SCH ×2 (08:40→20:32)
[2019-05-28] MEDS: PANTOPRAZOLE 40 MG TABLET PO SCH (08:40)
[2019-05-28] MEDS: METOPROLOL TARTRATE 50 MG TABLET PO SCH ×2 (08:40→20:31)
[2019-05-28] MEDS: FLUoxetine 20 MG CAPSULE PO SCH ×2 (08:40→20:31)
[2019-05-28] MEDS: GABAPENTIN 100 MG CAPSULE PO SCH ×3 (08:40→20:31)
[2019-05-28] MEDS: FUROSEMIDE 40 MG/4 ML VIAL IV SCH (08:45)
[2019-05-28] MEDS: fentaNYL 25 MCG/HR PATCH TRANSDERM SCH (09:07)
[2019-05-28] MEDS: ONDANSETRON 4 MG/2 ML VIAL IV PRN ×2 (11:43→20:30)
[2019-05-28] MEDS: FUROSEMIDE 40 MG TABLET PO SCH (16:39)
[2019-05-28] MEDS: ATORVASTATIN 40 MG TABLET PO SCH (20:31)
[2019-05-28] MEDS: MORPHINE 4 MG/1 ML VIAL IV PRN ×2 (20:33→22:40)
[2019-05-29] MEDS: MORPHINE 4 MG/1 ML VIAL IV PRN ×7 (00:43→21:40)
[2019-05-29] MEDS: INSULIN REGULAR 100 UNIT/ML SUBCUT SCH ×6 (00:51→21:39)
[2019-05-29] MEDS: ALBUTEROL/IPRATROPIUM 3 ML NEB RESP TX SCH ×4 (01:13→19:23)
[2019-05-29] MEDS: chlordiazePOXIDE 10 MG CAPSULE PO SCH ×3 (05:34→21:45)
[2019-05-29] MEDS: PIPERACILLIN/TAZOBACTAM 3,375 MG in SODIUM CHLORIDE 0.9% 100 ML IV SCH ×2 (07:46→16:08)
[2019-05-29] MEDS: methylPREDNISolone SOD SUC 40 MG/1 ML VIAL IV SCH ×2 (07:47→16:08)
[2019-05-29] MEDS: FLUoxetine 20 MG CAPSULE PO SCH ×2 (09:17→21:45)
[2019-05-29] MEDS: FUROSEMIDE 40 MG TABLET PO SCH ×2 (09:17→16:08)
[2019-05-29] MEDS: ASPIRIN EC 325 MG TABLET PO SCH (09:17)
[2019-05-29] MEDS: HydrOXYzine PAMOATE 50 MG CAPSULE PO SCH ×3 (09:18→21:46)
[2019-05-29] MEDS: METOPROLOL TARTRATE 50 MG TABLET PO SCH ×2 (09:18→21:45)
[2019-05-29] MEDS: PANTOPRAZOLE 40 MG TABLET PO SCH (09:18)
[2019-05-29] MEDS: GABAPENTIN 100 MG CAPSULE PO SCH ×3 (09:18→21:45)
[2019-05-29] MEDS: CHLORHEXIDINE 0.12% ORAL RINSE 60 ML BOTTLE SWISH/SPIT SCH ×2 (09:19→21:50)
[2019-05-29] MEDS: ONDANSETRON 4 MG/2 ML VIAL IV PRN (12:01)
[2019-05-29] MEDS ORDERED: LORazepam 0.5 MG TABLET PO PRN (19:39)
[2019-05-29] MEDS: LORazepam 1 MG TABLET PO PRN (20:07)
[2019-05-29] MEDS: ATORVASTATIN 40 MG TABLET PO SCH (21:45)
[2019-05-30] MEDS: MORPHINE 4 MG/1 ML VIAL IV PRN ×3 (00:24→09:51)
[2019-05-30] MEDS: methylPREDNISolone SOD SUC 40 MG/1 ML VIAL IV SCH ×4 (00:28→23:40)
[2019-05-30] MEDS: PIPERACILLIN/TAZOBACTAM 3,375 MG in SODIUM CHLORIDE 0.9% 100 ML IV SCH ×2 (00:30→08:47)
[2019-05-30] MEDS: ALBUTEROL/IPRATROPIUM 3 ML NEB RESP TX SCH ×4 (00:44→18:53)
[2019-05-30] MEDS: INSULIN REGULAR 100 UNIT/ML SUBCUT SCH ×6 (01:32→20:34)
[2019-05-30] MEDS: chlordiazePOXIDE 10 MG CAPSULE PO SCH ×3 (05:36→20:29)
[2019-05-30] MEDS: FLUoxetine 20 MG CAPSULE PO SCH ×2 (08:42→20:29)
[2019-05-30] MEDS: HydrOXYzine PAMOATE 50 MG CAPSULE PO SCH ×3 (08:42→20:29)
[2019-05-30] MEDS: GABAPENTIN 100 MG CAPSULE PO SCH ×3 (08:43→20:29)
[2019-05-30] MEDS: ASPIRIN EC 325 MG TABLET PO SCH (08:43)
[2019-05-30] MEDS: METOPROLOL TARTRATE 50 MG TABLET PO SCH ×2 (08:43→20:29)
[2019-05-30] MEDS: FUROSEMIDE 40 MG TABLET PO SCH ×2 (08:43→16:04)
[2019-05-30] MEDS: PANTOPRAZOLE 40 MG TABLET PO SCH (08:43)
[2019-05-30] MEDS: LORazepam 1 MG TABLET PO PRN ×2 (09:51→16:38)
[2019-05-30] MEDS: oxyCODONE/ACETAMINOPHEN 5-325 MG TABLET PO PRN ×2 (13:04→20:38)
[2019-05-30] MEDS: CHLORHEXIDINE 0.12% ORAL RINSE 60 ML BOTTLE SWISH/SPIT SCH ×2 (15:48→20:29)
[2019-05-30] MEDS: ATORVASTATIN 40 MG TABLET PO SCH (20:29)
[2019-05-31] MEDS: ALBUTEROL/IPRATROPIUM 3 ML NEB RESP TX SCH ×4 (00:31→19:54)
[2019-05-31] MEDS: INSULIN REGULAR 100 UNIT/ML SUBCUT SCH ×8 (01:46→23:19)
[2019-05-31] MEDS: oxyCODONE/ACETAMINOPHEN 5-325 MG TABLET PO PRN ×3 (04:15→20:16)
[2019-05-31 05:15] LABS: Basophils % 0.2 % (0.0-0.8); Hematocrit 31.8 VOL% (35.7-47.0); Hemoglobin 10.1 GM/DL (12.0-16.0); Immature Granulocytes % 3.4 %; Lymphocytes # 1.2 10*3/uL (1.4-4.0); Lymphocytes % 6.5 % (21.3-54.2); Mean Corpuscular HGB Conc 31.8 GM/DL (32-36); Mean Corpuscular Volume 80.7 FL (87-102); Mean Platelet Volume 10.6 FL (9.6-12.0); Monocytes % 6.9 % (1.7-12.7); NRBC # 0.02 10*3/uL; Platelet Count 336 T/CUMM (130-400); Red Blood Count 3.94 MC/CUMM (3.8-5.5); White Blood Count 17.8 T/CUMM (4-12)
[2019-05-31] MEDS: chlordiazePOXIDE 10 MG CAPSULE PO SCH ×3 (05:25→20:17)
[2019-05-31 05:29] LABS: Calcium 8.7 MG/DL (8.5-10.1); Osmolality,Calculated 289.3 MOS/KG (273-304)
[2019-05-31 05:46] LABS: Lymphocytes 6 % (20-55); Platelet Estimate Normal; Segmented Neutrophils 92 % (50-85); Total Cells Counted 100
[2019-05-31] MEDS: METOPROLOL TARTRATE 50 MG TABLET PO SCH ×2 (08:45→20:17)
[2019-05-31] MEDS: PANTOPRAZOLE 40 MG TABLET PO SCH (08:45)
[2019-05-31] MEDS: POTASSIUM CHLORIDE 20 MEQ TABLET PO PRN ×2 (08:45→10:33)
[2019-05-31] MEDS: ASPIRIN EC 325 MG TABLET PO SCH (08:45)
[2019-05-31] MEDS: GABAPENTIN 100 MG CAPSULE PO SCH ×3 (08:45→20:16)
[2019-05-31] MEDS: FUROSEMIDE 40 MG TABLET PO SCH ×2 (08:45→15:33)
[2019-05-31] MEDS: fentaNYL 25 MCG/HR PATCH TRANSDERM SCH (08:46)
[2019-05-31] MEDS: HydrOXYzine PAMOATE 50 MG CAPSULE PO SCH ×3 (08:46→20:16)
[2019-05-31] MEDS: methylPREDNISolone SOD SUC 40 MG/1 ML VIAL IV SCH ×2 (08:48→20:15)
[2019-05-31] MEDS: FLUoxetine 20 MG CAPSULE PO SCH ×2 (09:06→20:16)
[2019-05-31] MEDS: CHLORHEXIDINE 0.12% ORAL RINSE 60 ML BOTTLE SWISH/SPIT SCH ×2 (09:07→20:17)
[2019-05-31] MEDS: LORazepam 1 MG TABLET PO PRN (09:34)
[2019-05-31] MEDS: LISINOPRIL 5 MG TABLET PO SCH (10:33)
[2019-05-31] MEDS ORDERED: NICOTINE 21 MG/24 HR PATCH TRANSDERM SCH (14:00)
[2019-05-31] MEDS: ATORVASTATIN 40 MG TABLET PO SCH (20:16)
[2019-06-01] MEDS: LORazepam 1 MG TABLET PO PRN ×2 (00:05→09:39)
[2019-06-01] MEDS: ALBUTEROL/IPRATROPIUM 3 ML NEB RESP TX SCH ×2 (01:31→07:44)
[2019-06-01] MEDS: INSULIN REGULAR 100 UNIT/ML SUBCUT SCH ×2 (03:13→09:42)
[2019-06-01] MEDS: chlordiazePOXIDE 10 MG CAPSULE PO SCH (04:55)
[2019-06-01 05:40] LABS: Basophils # 0.1 10*3/uL (0.0-0.2); Basophils % 0.4 % (0.0-0.8); Eosinophils % 0.1 % (0.00-10.9); Hematocrit 33.2 VOL% (35.7-47.0); Hemoglobin 10.4 GM/DL (12.0-16.0); Immature Granulocytes % 6.1 %; Lymphocytes # 1.5 10*3/uL (1.4-4.0); Lymphocytes % 7.9 % (21.3-54.2); Mean Corpuscular HGB Conc 31.3 GM/DL (32-36); Monocytes % 5.8 % (1.7-12.7); Neutrophils % 79.7 % (38.7-73.9); Platelet Count 368 T/CUMM (130-400); Red Cell Distribution Width 16.3 % (9.3-17.3); White Blood Count 19.6 T/CUMM (4-12)
[2019-06-01 05:58] LABS: Calcium 8.3 MG/DL (8.5-10.1); Osmolality,Calculated 288.5 MOS/KG (273-304)
[2019-06-01 06:01] LABS: Hypochromasia 1+; Lymphocytes 9 % (20-55); Platelet Estimate Adequate; Segmented Neutrophils 87 % (50-85); Total Cells Counted 100
[2019-06-01 08:47] VITALS: BP 131/83
[2019-06-01] MEDS ORDERED: NICOTINE 14 MG/24 HR PATCH TRANSDERM SCH (09:00)
[2019-06-01] MEDS: ASPIRIN EC 325 MG TABLET PO SCH (09:37)
[2019-06-01] MEDS: FLUoxetine 20 MG CAPSULE PO SCH (09:37)
[2019-06-01] MEDS: FUROSEMIDE 40 MG TABLET PO SCH (09:37)
[2019-06-01] MEDS: LISINOPRIL 5 MG TABLET PO SCH (09:37)
[2019-06-01] MEDS: HydrOXYzine PAMOATE 50 MG CAPSULE PO SCH (09:37)
[2019-06-01] MEDS: METOPROLOL TARTRATE 50 MG TABLET PO SCH (09:37)
[2019-06-01] MEDS: PANTOPRAZOLE 40 MG TABLET PO SCH (09:37)
[2019-06-01] MEDS: GABAPENTIN 100 MG CAPSULE PO SCH (09:40)
[2019-06-01] MEDS: CHLORHEXIDINE 0.12% ORAL RINSE 60 ML BOTTLE SWISH/SPIT SCH (09:59)
[2019-06-01] MEDS: methylPREDNISolone SOD SUC 40 MG/1 ML VIAL IV SCH (10:09)
== END 2019-06-01 10:53 | disposition home health service (06) | DRG 233 ==
LOC: N.TELEN 04:46 → SUATTDRO 05:47 → INTOOBSV 05:47 → N.CC 05-20 03:30 → N.TELEN 05-22 17:19 → N.CVR 05-25 07:25 → N.ICU 05-26 11:10 → N.TELES 05-28 14:51
PROVIDERS: ADMIT Internal Medicine; ATTEND Internal Medicine Cardiovascular Disease
PROC: CLCCHCL (ICD-10-PCS; 2019-05-19 15:15)

== ENCOUNTER 2019-06-05 15:22 | Observation (INO) ==
[2019-06-05] MEDS ORDERED: SODIUM CHLORIDE 0.9% 1,000 ML IV STA (16:13)
[2019-06-05 16:32] LABS: Basophils % 0.2 % (0.0-0.8); Eosinophils # 0.5 10*3/uL (0.0-0.87); Eosinophils % 2.9 % (0.00-10.9); Hematocrit 32.9 VOL% (35.7-47.0); Hemoglobin 10.5 GM/DL (12.0-16.0); Immature Granulocytes % 1.5 %; Immature Granulocytes Absolute 0.24 #; Lymphocytes % 6.4 % (21.3-54.2); Mean Corpuscular HGB Conc 31.9 GM/DL (32-36); Mean Corpuscular Volume 81.2 FL (87-102); Mean Platelet Volume 10.8 FL (9.6-12.0); Monocytes % 6.7 % (1.7-12.7); Neutrophils % 82.3 % (38.7-73.9); Platelet Count 306 T/CUMM (130-400); Red Blood Count 4.05 MC/CUMM (3.8-5.5); Red Cell Distribution Width 17.1 % (9.3-17.3); White Blood Count 15.8 T/CUMM (4-12)
[2019-06-05 16:39] LABS: CKMB % 1.8 %; Troponin I < 0.015 NG/ML (0.00-0.045)
[2019-06-05 16:47] LABS: Apearance,Urine CLEAR (Clear); Bacteria,Urine Moderate /HPF (Few); Bilirubin,Urine Negative (Negative); Blood, Urine Negative (Negative); Glucose,Urine (UA) Negative (Negative); Hyaline Casts,Urine 10 /LPF (0-3); Ketones,Urine Negative (Negative); Nitrite,Urine Negative (Negative); Protein,Urine Negative; RBC,Urine 2 /HPF (0-4); Squamous Epithelial Cell,Urine Occasional /HPF (0-10); Urine Color Yellow (Yellow); Urine Specific Gravity 1.012 (1.001-1.035); Urine Urobilinogen < 2.0 EU/DL (0.2-1.0); WBC,Urine 9 /HPF (0-6)
[2019-06-05 16:49] LABS: Barbiturates Screen,Urine Negative (Negative); Benzodiazepines Screen,Urine Positive (Negative); Cannabinoid Screen,Urine Negative (Negative); Opiate Screen,Urine Positive (Negative); Phencyclidine Screen,Urine Negative (Negative)
[2019-06-05 17:18] LABS: INR 1.1; PT Patient Result 11.4 SECS (9.6-12.2); Partial Thromboplastin Time 33.4 SECS (20.8-36.0)
[2019-06-05 17:38] LABS: Albumin 2.5 G/DL (3.4-5.0); Bilirubin,Total 0.6 MG/DL (0.2-1.0); Calcium 8.3 MG/DL (8.5-10.1); Osmolality,Calculated 286.5 MOS/KG (273-304); Total Protein 6.9 G/DL (6.4-8.3)
[2019-06-05] MEDS ORDERED: ONDANSETRON 4 MG/2 ML VIAL IV PRN (19:45)
[2019-06-05] MEDS: SULFAMETHOX/TRIMETHOPRIM 800-160 MG TABLET PO SCH (20:03)
[2019-06-05] MEDS: ACETAMINOPHEN 500 MG TABLET PO PRN (20:03)
[2019-06-05] MEDS: SODIUM CHLORIDE 0.9% 1,000 ML IV SCH (20:04)
[2019-06-05 20:45] LABS: Troponin I < 0.015 NG/ML (0.00-0.045)
[2019-06-05 23:27] LABS: Troponin I < 0.015 NG/ML (0.00-0.045)
[2019-06-06] MEDS: ACETAMINOPHEN 500 MG TABLET PO PRN ×3 (03:26→20:31)
[2019-06-06] MEDS: SODIUM CHLORIDE 0.9% 1,000 ML IV SCH ×2 (03:29→12:28)
[2019-06-06 03:32] LABS: Troponin I < 0.015 NG/ML (0.00-0.045)
[2019-06-06] MEDS: PANTOPRAZOLE 40 MG TABLET PO SCH (09:18)
[2019-06-06] MEDS: SULFAMETHOX/TRIMETHOPRIM 800-160 MG TABLET PO SCH ×2 (09:18→20:27)
[2019-06-06 09:44] LABS: Basophils % 0.1 % (0.0-0.8); Eosinophils # 0.4 10*3/uL (0.0-0.87); Eosinophils % 2.5 % (0.00-10.9); Hematocrit 32.5 VOL% (35.7-47.0); Hemoglobin 10.4 GM/DL (12.0-16.0); Immature Granulocytes % 1.2 %; Immature Granulocytes Absolute 0.21 #; Lymphocytes # 1.4 10*3/uL (1.4-4.0); Mean Platelet Volume 10.1 FL (9.6-12.0); Monocytes % 5.9 % (1.7-12.7); Neutrophils % 82.3 % (38.7-73.9); Platelet Count 404 T/CUMM (130-400); Red Blood Count 4.06 MC/CUMM (3.8-5.5); Red Cell Distribution Width 16.8 % (9.3-17.3); White Blood Count 16.9 T/CUMM (4-12)
[2019-06-06] MEDS ORDERED: guaiFENesin 200 MG/10 ML UDCUP PO PRN (09:47)
[2019-06-06] MEDS ORDERED: cloNIDine 0.1 MG/24 HR PATCH TRANSDERM SCH (10:00)
[2019-06-06 10:04] LABS: Calcium 8.4 MG/DL (8.5-10.1); Osmolality,Calculated 279.8 MOS/KG (273-304)
[2019-06-06] MEDS ORDERED: traMADol 50 MG TABLET PO PRN (10:05)
[2019-06-06] MEDS ORDERED: ALBUTEROL/IPRATROPIUM 3 ML NEB RESP TX PRN (10:05)
[2019-06-06] MEDS ORDERED: LEVOFLOXACIN 750 MG TABLET PO SCH (12:00)
[2019-06-06] MEDS: LISINOPRIL 5 MG TABLET PO SCH (12:28)
[2019-06-06] MEDS: FLUoxetine 20 MG CAPSULE PO SCH ×2 (12:29→20:27)
[2019-06-06] MEDS: chlordiazePOXIDE 10 MG CAPSULE PO SCH ×2 (12:29→17:02)
[2019-06-06] MEDS: ASPIRIN EC 325 MG TABLET PO SCH (12:31)
[2019-06-06] MEDS: HydrOXYzine PAMOATE 50 MG CAPSULE PO SCH ×2 (14:32→20:27)
[2019-06-06] MEDS: GABAPENTIN 100 MG CAPSULE PO SCH ×2 (14:32→20:27)
[2019-06-06] MEDS: METOPROLOL TARTRATE 25 MG TABLET PO SCH (20:27)
[2019-06-06] MEDS ORDERED: METOPROLOL TARTRATE 50 MG TABLET PO SCH (21:00)
[2019-06-06] MEDS ORDERED: ATORVASTATIN 40 MG TABLET PO SCH (21:00)
[2019-06-07] MEDS: chlordiazePOXIDE 10 MG CAPSULE PO SCH ×2 (01:05→09:38)
[2019-06-07] MEDS: ACETAMINOPHEN 500 MG TABLET PO PRN (06:12)
[2019-06-07] MEDS: ASPIRIN EC 325 MG TABLET PO SCH (09:37)
[2019-06-07] MEDS: HydrOXYzine PAMOATE 50 MG CAPSULE PO SCH (09:37)
[2019-06-07] MEDS: METOPROLOL TARTRATE 25 MG TABLET PO SCH (09:38)
[2019-06-07] MEDS: LISINOPRIL 5 MG TABLET PO SCH (09:38)
[2019-06-07] MEDS: PANTOPRAZOLE 40 MG TABLET PO SCH (09:38)
[2019-06-07] MEDS: FLUoxetine 20 MG CAPSULE PO SCH (09:38)
[2019-06-07] MEDS: SULFAMETHOX/TRIMETHOPRIM 800-160 MG TABLET PO SCH (09:38)
[2019-06-07] MEDS: GABAPENTIN 100 MG CAPSULE PO SCH (09:38)
[2019-06-07 12:19] VITALS: BP 136/85
== END 2019-06-07 14:30 | disposition home health service (06) ==
LOC: EDBD → EDUNIT# → N.ED 15:22 → N.EDINP 15:22 → N.TELEN 19:01
PROVIDERS: ADMIT Thoracic Surgery (Cardiothoracic Vascular Surgery); ATTEND Thoracic Surgery (Cardiothoracic Vascular Surgery)